=== PATIENT | male | born 1960 | race Caucasian/White ===

== ENCOUNTER → 2018-06-12 | Emergency (ER) | END | disposition home or self-care (01) ==

== ENCOUNTER 2018-09-19 15:25 | Emergency (ER) | payer MEDICARE, OTHER ==
[~2018-09-19] VITALS: Ht 182.9 cm; Wt 97.7 kg
[2018-09-19 16:11] VITALS: Ht 182.9 cm; Wt 97.7 kg
--- NOTE | 2018-09-19 16:52 | ERD ---
ER Documentation Chief Complaint Chief Complaint MECHANICAL FALL FROM W/C TO TOILET HIT FORHEAD NO LOC HPI 58-year-old male with a history of traumatic brain injury and seizure disorder brought in from his care facility after a ground-level fall. The patient normally is in a wheelchair. He went to the bathroom and was trying to transfer from the wheelchair to the toilet and fell hitting the right side of his head. He denies loss of consciousness. He did have a headache earlier but now feels better. He denies any new focal weakness or numbness. No nausea, vomiting, neck pain or stiffness. He does have chronic left hemiplegia and disconjugate gaze with vision disturbance. ROS All systems reviewed and are negative except as per history of present illness. Medications Home Meds Reported Medications Divalproex Sodium* (Depakote*) 500 Mg Tablet.dr, 1500 MG PO BID, #120 TAB 09/19/18 Baclofen* (Baclofen*) 10 Mg Tablet, 10 MG PO TID, TAB 09/19/18 Gabapentin* (Gabapentin*) 100 Mg Capsule, 200 MG PO QHS, #180 CAP 09/19/18 Trazodone Hcl* (Trazodone Hcl*) 50 Mg Tablet, 50 MG PO QHS, #30 TAB 09/19/18 Roscoe-3 Acid Ethyl Esters (Lovaza) 1 Gm Capsule, 1 GM PO DAILY, CAP 09/19/18 Losartan Potassium* (Losartan Potassium*) 100 Mg Tablet, 100 MG PO DAILY, TAB 09/19/18 Atorvastatin* (Atorvastatin*) 40 Mg Tablet, 40 MG PO QHS, #30 TAB 09/19/18 Atenolol* (Atenolol*) 50 Mg Tablet, 50 MG PO DAILY, #30 TAB 09/19/18 Allergies Allergies: Coded Allergies: phenytoin (Verified Allergy, Mild, X, 09/19/18) PMhx/Soc Hx Neurological Disorder: Yes (TBI, SZ, ) Hx Cardiac Disorders: Yes (HTN, HYPERLIPIDEMIA) Hx Psychiatric Problems: No Hx Miscellaneous Medical Probl: Yes (DIET CONTROLLED DM) Hx Alcohol Use: No Hx Substance Use: No Hx Tobacco Use: No Smoking Status: Unknown if ever smoked FmHx Family History: No diabetes Physical Exam Vitals Vital Signs Date Temp Pulse Resp B/P (MAP) Pulse Ox O2 O2 Flow FiO2 Time Delivery Rate 09/19/18 98.9 88 20 140/93 93 16:11 (109) Physical Exam Const: No acute distress Head: Contusion to the right forehead without swelling, skull deformity, or laceration Eyes: Normal Conjunctiva. Dysconjugate gaze with nystagmus. PERRLA, EOMI ENT: Normal External Ears, Nose and Mouth. Neck: Full range of motion. No meningismus. No midline tenderness Resp: Clear to auscultation bilaterally Cardio: Regular rate and rhythm, no murmurs Abd: Soft, non tender, non distended. Normal bowel sounds Skin: No petechiae or rashes Pelvis: stable. Nontender Back: No midline or flank tenderness Ext: No cyanosis, or edema. Normal to inspection and palpation Neur: Awake and alert, normal speech, disconjugate gaze. No facial asymmetry. Strength 5 out of 5 in bilateral upper extremities. Strength 3 out of 5 in the left lower extremity. 5 out of 5 in the right lower extremity. Sensations grossly intact. Psych: Normal Mood and Affect Procedures/MDM Patient has suffered from minor blunt head trauma that occurred on the following time: 4pm The patient has a GCS of [address] was ordered based on the following indication: Age 65+ CT head shows no acute traumatic abnormalities Patient is stable and is able to be discharged back to his [facility]. Fall precautions were discussed with him. He has no evidence of any other injuries on exam. Patient's blood pressure was elevated (>120/80) but appears stable without evidence of hypertension emergency or urgency. The patient was counseled about the risks of hypertension and urged to pursue outpatient monitoring and therapy within a week with their primary care physician. Departure Diagnosis: Primary Impression: Head contusion Encounter type: initial encounter Contusion of head detail: scalp Qualified Codes: S00.03XA - Contusion of scalp, initial encounter Additional Impressions: Head injury, acute Encounter type: initial encounter Qualified Codes: S09.90XA - Unspecified injury of head, initial encounter Fall with no significant injury Encounter type: initial encounter Qualified Codes: W19.XXXA - Unspecified fall, initial encounter Condition: Stable LAVERNE THOMPSON MD Sep 19, 2018 16:52
[2018-09-19] MEDS ORDERED: ATOR40TA68 PO (17:34)
[2018-09-19] MEDS ORDERED: ATEN50TA PO (17:34)
[2018-09-19] MEDS ORDERED: LOSA100T15 PO (17:35)
[2018-09-19] MEDS ORDERED: OMEG1CAP2 PO (17:36)
[2018-09-19] MEDS ORDERED: TRAZ-111 PO (17:37)
[2018-09-19] MEDS ORDERED: GABA100C14 PO (17:38)
[2018-09-19] MEDS ORDERED: BACL10TA PO (17:39)
[2018-09-19] MEDS ORDERED: DIVA-48 PO (17:40)
[2018-09-19] MEDS ORDERED: VENL150C PO (17:42)
[2018-09-19] MEDS ORDERED: RISP1TAB3 PO (17:43)
[2018-09-19] MEDS ORDERED: IBUP-1542 PO (17:45)
[2018-09-19] MEDS ORDERED: CARB-160 PO (17:45)
[2018-09-19 17:52] VITALS: BP 136/71; PULSE 85; RESP 20
== END 2018-09-19 20:34 | disposition home or self-care (01) ==
LOC: E/R 15:25
DX: S00.03XA Contusion of scalp, initial encounter (principal); I10 Essential (primary) hypertension; E11.9 Type 2 diabetes mellitus without complications; W07.XXXA Fall from chair, initial encounter; Y92.89 Other specified places as the place of occurrence of the external cause
CPT/HCPCS: 70450